=== PATIENT | female | born 1970 | race Caucasian/White ===

== ENCOUNTER → 2018-05-14 | Day surgery (SDC) | payer OTHER ==
[2018-05-13 16:27] LABS: BASOPHILS % 0.3 % (0.0-1.0); EOSINOPHILS # (AUTO) 0.1 (0.0-0.4); EOSINOPHILS % 0.7 % (0.0-6.0); HEMATOCRIT 42.7 % (34.2-44.1); HEMOGLOBIN 14.5 g/dL (12.0-16.0); LYMPHOCYTES # (AUTO) 3.4 (1.0-3.2); LYMPHOCYTES % 33.2 % (18.0-39.1); MEAN CORPUSCULAR HEMOGLOBIN 31.4 pg (28-32); MEAN CORPUSCULAR VOLUME 92.4 fL (81-99); MONOCYTES # (AUTO) 0.4 (0.2-0.8); MONOCYTES % 4.3 % (4.4-11.3); NEUTROPHILS # (AUTO) 6.2 (2.1-6.9); NEUTROPHILS % 61.2 % (38.7-80.0); PLATELET COUNT 180 x10e3/uL (140-360); RED BLOOD COUNT 4.62 x10e6/uL (3.6-5.1); RED CELL DISTRIBUTION WIDTH 12.9 % (11.7-14.4)
[2018-05-13 17:08] LABS: INR 0.89; PROTHROMBIN TIME 12.9 seconds (11.9-14.5)
[2018-05-13 17:20] LABS: ALANINE AMINOTRANSFERASE 16 IU/L (0-55); ALBUMIN 4.2 g/dL (3.5-5.0); ALBUMIN/GLOBULIN RATIO 1.3 (0.8-2.0); ALKALINE PHOSPHATASE 112 IU/L (40-150); ANION GAP 16.4 mmol/L (8-16); BLOOD UREA NITROGEN 19 mg/dL (7-26); BUN/CREATININE RATIO 20 (6-25); CALCIUM 9.8 mg/dL (8.4-10.2); CARBON DIOXIDE 27 mmol/L (22-29); CHLORIDE 103 mmol/L (98-107); CHOL/HDL RATIO 2.7 (3.0-3.6); CHOLESTEROL 133 MD/DL (0-199); CREATININE, SERUM 0.93 mg/dL (0.57-1.11); EST GLOMERULAR FILTRATION RATE > 60 ML/MIN (60-); GLUCOSE 87 mg/dL (74-118); HDL CHOLESTEROL 49 MG/DL (40-60); LDL CHOLESTEROL 68 MG/DL (60-130); POTASSIUM 3.4 mmol/L (3.5-5.1); SODIUM 143 mmol/L (136-145); TRIGLYCERIDES 80 MG/DL (0-149)
[~2018-05-14] VITALS: Ht 154.9 cm; Wt 82.1 kg
[~2018-05-14] MED LIST: ALPRAZOLAM1 MG PO; ASPIR 8181 MG PO; ATORVASTATIN CA80 MG PO; DIOVAN160 MG PO; DIPHENHYDRAMINE HCL INJ 50 MG/ML VIAL ONE; FENTANYL CITRATE/PF 100MCG/2 ML INJ ONE; FUROSEMIDE40 MG PO; HEPARIN SOD/SOD CHLORIDE 2,000 ML ONE; IOPAMIDOL 370 MG/ML 200 ML INFUS..BTL INJ ONE; LIDOCAINE HCL 2% LOCAL 20 ML VIAL ONE; LOPID600 MG PO; LOSARTAN POTASS25 MG PO; METOPROLOL TART25 MG PO; METOPROLOL TART50 MG PO; MIDAZOLAM HCL 2 MG/2 ML VIAL ONE; PLAVIX75 MG PO; RANEXA500 MG PO; SODIUM CHLORIDE 0.9% 1000ML 0 ML ONE; SODIUM CHLORIDE 0.9% 1000ML 1,000 ML ONE; SPIRONOLACTONE25 MG PO
[2018-05-14 14:55] VITALS: BP 92/61
[2018-05-14 15:06] VITALS: BP 76/66
--- NOTE | 2018-05-14 15:14 | Operative Report ---
DATE OF PROCEDURE: May 14, 2018 INDICATIONS: Coronary artery disease and abnormal stress test. PROCEDURES PERFORMED 1. Left heart catheterization. 2. Selective coronary angiography. 3. Left ventriculography. 4. Deployment of right groin Angio-Seal. COMPLICATIONS: None. RECOMMENDATIONS: Medical therapy. Access obtained in the right femoral artery. A 6-Lithuanian sheath was placed. Diagnostic coronary angiogram revealed the left main widely patent. Ostial left anterior descending artery 50% stenosis. Stent in the proximal left anterior descending artery was widely patent. Remaining vessel had mild disease. Circumflex and right coronary artery had mild disease of less than 10% luminal stenosis. No critical stenosis or occlusions were noted. LV ejection fraction 30%. 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 LV end-diastolic pressure of 18. No gradient across the aortic valve on pullback. Right groin repaired using Angio-Seal. Patient discharged home same day. Job#: [id number] [place]
[2018-05-14 15:33] VITALS: BP 93/65
[2018-05-14 16:00] VITALS: BP 96/68
== END | disposition home or self-care (01) ==
LOC: CATH LAB 11:46
PROVIDERS: ATTEND Internal Medicine Interventional Cardiology
DX: I25.10 Atherosclerotic heart disease of native coronary artery without angina pectoris (principal); R94.39 Abnormal result of other cardiovascular function study; Z01.812 Encounter for preprocedural laboratory examination; Z79.82 Long term (current) use of aspirin; Z79.02 Long term (current) use of antithrombotics/antiplatelets
CPT/HCPCS: 36415; 80053; 80061; 81025; 85025; 85610; 93458; C1769; J1200; J2001; J2250; J7030; Q9967

== ENCOUNTER → 2020-02-29 | Day surgery (SDC) | payer OTHER ==
[2020-02-24 11:23] LABS: BASOPHILS % 0.3 % (0.0-1.0); EOSINOPHILS # (AUTO) 0.1 (0.0-0.4); EOSINOPHILS % 1.1 % (0.0-6.0); HEMATOCRIT 44.7 % (34.2-44.1); HEMOGLOBIN 14.7 g/dL (12.0-16.0); LYMPHOCYTES % 27.6 % (18.0-39.1); MEAN CORPUSCULAR HEMOGLOBIN 30.9 pg (28-32); MEAN CORPUSCULAR HGB CONC 32.9 g/dL (31-35); MEAN CORPUSCULAR VOLUME 93.9 fL (81-99); MONOCYTES # (AUTO) 0.3 (0.2-0.8); MONOCYTES % 3.7 % (4.4-11.3); NEUTROPHILS # (AUTO) 4.9 (2.1-6.9); PLATELET COUNT 170 x10e3/uL (140-360); RED BLOOD COUNT 4.76 x10e6/uL (3.6-5.1); RED CELL DISTRIBUTION WIDTH 13.1 % (11.7-14.4)
[2020-02-24 11:41] LABS: INR 0.85; PROTHROMBIN TIME 12.1 seconds (11.9-14.5)
[2020-02-24 11:50] LABS: ANION GAP 10.9 mmol/L (8-16); BLOOD UREA NITROGEN 13 mg/dL (7-26); BUN/CREATININE RATIO 15 (6-25); CALCIUM 9.2 mg/dL (8.4-10.2); CARBON DIOXIDE 29 mmol/L (22-29); CHLORIDE 106 mmol/L (98-107); CREATININE, SERUM 0.87 mg/dL (0.57-1.11); EST GLOMERULAR FILTRATION RATE > 60 ML/MIN (60-); GLUCOSE 107 mg/dL (74-118); POTASSIUM 3.9 mmol/L (3.5-5.1); SODIUM 142 mmol/L (136-145)
--- NOTE | 2020-02-24 19:00 | NUR ---
1900 Pt will need stat EKG on arrival and please see if BS needs to be check if doesn't report home check (states has hypoglycemic events) ds/rn
--- NOTE | 2020-02-24 19:00 | NUR ---
1900pm INTERVIEW OVER PHONE COMPLETED,pt aware Npo and self isolate for Covid.Will [id number] 28 February ds/rn
[~2020-02-29] VITALS: Ht 149.9 cm; Wt 86.2 kg
[2020-02-29] VITALS (8 sets, daily range): BP systolic 70–118; BP diastolic 37–88
[~2020-02-29] MED LIST changes: +BACITRACIN 50,000 UNIT VIAL ONE; +CEFAZOLIN SOD 2 GM/D5W 50ML 50 ML IV ONE; +GENTAMICIN SULFATE 40 MG/ML 2 ML VIAL ONE; -HEPARIN SOD/SOD CHLORIDE 2,000 ML ONE; -IOPAMIDOL 370 MG/ML 200 ML INFUS..BTL INJ ONE; +LIDOCAINE 1% W/EPINEPHRINE 20 ML VIAL ONE; -SODIUM CHLORIDE 0.9% 1000ML 0 ML ONE; -SODIUM CHLORIDE 0.9% 1000ML 1,000 ML ONE; +SODIUM CHLORIDE 0.9% 1000ML 2,000 ML ONE; +VANCOMYCIN 1GM/NS 250 ML 250 ML ONE
--- NOTE | 2020-02-29 12:17 | NUR ---
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
--- NOTE | 2020-02-29 12:45 | NUR ---
1245p check in completed, stat serum in progress and stat ekg completed handoff to Ajith Gandara ds/rn
--- NOTE | 2020-02-29 15:30 | NUR ---
1530P Received pt to room #9,bedside report received from MARY Toussaint. Alert oriented and appropriate, PERRLA, respirations even and unlabored to room air. Pulses x4 extremities equal and strong. Pedal pulses PT/DP X4 and marked. Cap fill brisk < 3 sec. left chest dressing for SICD dry and intact with pressure dressing ok to dc at 1800pm. Skin warm and dry integrity appears D/I. IV 20g to rt ac presents healthy w/o s/s of infiltration or complaint. Abdomen soft and supple. pt offered toileting, denies need to urinate or defecate. No personal affects with patient. Family at home will PU at 1805pm. Pt verbalizes understanding of POC. f/o 2wks no bath or dressing change for 2wks.Aware of importance to call MD for events.Monitor explained by technologist from [employer]. Currently w/o complaint of pain or need. ds/rn
--- NOTE | 2020-02-29 16:45 | NUR ---
3194 pt with c/o itch to left upper arm states why bp cuff to right arm now. States arm burning Noted small less pea size red spot, Encourage pt not to scratch cleaned and no sting barrier applied, reported to Md and charge staff, patient wants no further treatment. syl/rn
--- NOTE | 2020-02-29 17:00 | NUR ---
1700 Dr Goodwin check pt and discussed dc planning with pt examined and determined no further tx for any skin issues. Aware of importance of POC and dc instructions. awaits in car ds/rn
--- NOTE | 2020-02-29 18:00 | NUR ---
1800pm Pt meets DC criteria. left mid chest dressing and left pacer dressing site assessed for s/s of complication and presence of hematoma. Skin warm, dry, no discolor, and pulses present. IV removed from rt AC. Distal tip appears intact. VS WNL. Pt denies pain, sob, or need at this time. Family at bedside. Review of discharge paperwork and follow up instructions. verbalized understanding. Pt to wheelchair and transported to front of hospital. Transferred to private vehicle under own strength w/o incident with DC paperwork in hand. - syl/rn Addendum: 02/29/20 at 2136 by Aracely Mason RN 1800pm HEADER ADDED: DC CCL NURSING NOTE stable to dc home aware of home instructions has prescription and back to baseline orientation.
--- NOTE | 2020-02-29 21:49 | Operative Report ---
DATE OF PROCEDURE: 02/29/2020 SURGEON: Timothy Francois MD PREPROCEDURE DIAGNOSES: 1. Subcutaneous defibrillator at [place]. 2. Chronic pain and discomforted, she pulled the ICD lead. 3. History of ventricular fibrillation cardiac arrest. POSTPROCEDURE DIAGNOSES: 1. Subcutaneous defibrillator at [place]. 2. Chronic pain and discomforted, she pulled the ICD lead. 3. History of ventricular fibrillation cardiac arrest. ESTIMATED BLOOD LOSS: 10 mL. COMPLICATIONS: None. PROCEDURES PERFORMED: 1. Subcutaneous cardiac defibrillator generator replacement. 2. Subcutaneous defibrillator lead revision. 3. Moderate sedation. Moderate conscious sedation was provided under my direct supervision by sedation trained nurse. Sedation approximate time 25 minutes. Versed and fentanyl. There were no complications. See sedation form for details. DESCRIPTION OF PROCEDURE: After informed consent was obtained, the patient was brought to the electrophysiology laboratory in a fasting, nonsedated state. Area over her chest was prepped and draped in usual sterile fashion. Moderate sedation and prophylactic antibiotics were given. 1% lidocaine was used as local anesthetic and a 4 cm skin incision was made in the 6th intercostal space left anterior axillary line. Electrocautery was used to dissect until reaching the device. This device was freed out of the pocket. The pocket was irrigated with antibiotic solution using the pulse mine utility operator. Hemostasis was meticulous. The lead disconnected from the old device connected to the new device and the new device placed in the pocket. We used antibiotic envelope and also vancomycin powder. The incision was closed using absorbable sutures and Dermabond. We then proceeded with revising the subcutaneous defibrillator lead at the tip at the area of the sternum. In tip of the lead was loose in the subcutaneous tissue, so we made a 2 cm skin incision and then dissected to the fascia. The lead was secured to fascia using Ethibond and then the incision was closed using absorbable sutures and Dermabond. The patient tolerated the procedure well. Procedure was incomplete. Of note, initial plan was to perform DFT during the procedure, however, prior to the procedure had a conversation with the patient and she stated she will not like to be tested regardless of any indications. She understands that this is important that she was adamant that she did not want to be shocked or tested for DFTs, so DFT was not performed, the patient has not received any shocks, so I think this is reasonable from the clinical standpoint. SUMMARY OF HARDWARE IMPLANTED: The new defibrillator is a [employer], serial #[id number]. IMPRESSION: 1. Successful subcutaneous defibrillator generator replacement. 2. Successful AICD lead revision. PLAN: 1. Routine postop monitoring on telemetry. 2. Continue same medicines. 3. Follow up in two weeks. MD NATHAN Barth/MODL /[id number]
== END | disposition home or self-care (01) ==
LOC: CATH LAB 10:25
PROVIDERS: ATTEND Internal Medicine
DX: T82.847A Pain due to cardiac prosthetic devices, implants and grafts, initial encounter (principal); T82.110A Breakdown (mechanical) of cardiac electrode, initial encounter; Z86.74 Personal history of sudden cardiac arrest; I25.10 Atherosclerotic heart disease of native coronary artery without angina pectoris; I49.01 Ventricular fibrillation; I50.22 Chronic systolic (congestive) heart failure; Y83.8 Other surgical procedures as the cause of abnormal reaction of the patient, or of later complication, without mention of misadventure at the time of the procedure; Z01.812 Encounter for preprocedural laboratory examination; Z11.59 Encounter for screening for other viral diseases; Z79.02 Long term (current) use of antithrombotics/antiplatelets; Z79.82 Long term (current) use of aspirin; Z95.5 Presence of coronary angioplasty implant and graft
CPT/HCPCS: 33262; 33273; 36415 ×2; 80048; 84702; 85025; 85610; 93005; C1722; C1763; J0690; J1200; J1580; J2001; J2250; J3370; J7030; U0002; 33215; 99152; 99153; J3010

== ENCOUNTER → 2020-05-23 | Day surgery (SDC) | payer OTHER ==
[2020-05-21 15:21] LABS: BASOPHILS # (AUTO) 0.1 (0.0-0.1); BASOPHILS % 0.6 % (0.0-1.0); EOSINOPHILS # (AUTO) 0.1 (0.0-0.4); EOSINOPHILS % 1.4 % (0.0-6.0); HEMOGLOBIN 13.8 g/dL (12.0-16.0); LYMPHOCYTES # (AUTO) 2.8 (1.0-3.2); LYMPHOCYTES % 36.1 % (18.0-39.1); MEAN CORPUSCULAR HEMOGLOBIN 31.1 pg (28-32); MEAN CORPUSCULAR HGB CONC 32.9 g/dL (31-35); MEAN CORPUSCULAR VOLUME 94.6 fL (81-99); MONOCYTES # (AUTO) 0.4 (0.2-0.8); NEUTROPHILS # (AUTO) 4.4 (2.1-6.9); NEUTROPHILS % 56.8 % (38.7-80.0); PLATELET COUNT 217 x10e3/uL (140-360); RED BLOOD COUNT 4.44 x10e6/uL (3.6-5.1); RED CELL DISTRIBUTION WIDTH 13.3 % (11.7-14.4)
[2020-05-21 15:31] LABS: INR 0.87; PROTHROMBIN TIME 12.3 seconds (11.9-14.5)
[2020-05-21 15:36] LABS: ANION GAP 14.1 mmol/L (8-16); BLOOD UREA NITROGEN 15 mg/dL (7-26); BUN/CREATININE RATIO 16 (6-25); CARBON DIOXIDE 28 mmol/L (22-29); CHLORIDE 107 mmol/L (98-107); CREATININE, SERUM 0.94 mg/dL (0.57-1.11); EST GLOMERULAR FILTRATION RATE > 60 ML/MIN (60-); GLUCOSE 98 mg/dL (74-118); POTASSIUM 4.1 mmol/L (3.5-5.1); SODIUM 145 mmol/L (136-145)
--- NOTE | 2020-05-22 12:30 | NUR ---
1230 Pt contacted by phone for interview of scheduled procedure. Review of medical history and current medications. Procedural consent on day of arrival to be completed, pre-op orders, and twice bathing education completed. All questions clarified and or answered where appropriate. pt verbalizes understanding to include day of procedure expectations and practice social distancing. Pt will contact Physician office to clarify medications to be held prior to procedural date.States has new allergy to Lorazepam which causes delusions and Microfoam tape that cases irritation to chest wall only.Aware will be admitted on day of procedure. Also noted has procedure scheduled and will be self insolating for Covid precautions so he will not be in attendance with patient.He is available on cell and will need to be informed of dc date. cell [phone] Alber Leger. syl/jose
[2020-05-23] VITALS (7 sets, daily range): BP systolic 77–140; BP diastolic 47–77
[~2020-05-23] VITALS: Ht 154.9 cm; Wt 86.6 kg
[~2020-05-23] MED LIST changes: -BACITRACIN 50,000 UNIT VIAL ONE; +CEFAZOLIN SOD 1 GM VIAL ONE; -CEFAZOLIN SOD 2 GM/D5W 50ML 50 ML IV ONE; -GENTAMICIN SULFATE 40 MG/ML 2 ML VIAL ONE; +SODIUM CHLORIDE 0.9% 500ML 500 ML ONE; +SODIUM CHLORIDE 0.9% 50ML 100 ML ONE; +VANCOMYCIN 1GM/NS 250 ML 0 ML ONE; -VANCOMYCIN 1GM/NS 250 ML 250 ML ONE; +[UNRECOGNIZED DRUG - OTHER] PO
--- NOTE | 2020-05-23 15:42 | NUR ---
1542pm bedside report received from JOSE Canseco. Identifierx2.Alert oriented and appropriate, PERRLA, respirations even and unlabored to room air. Pulses x4 extremities equal and strong. Pedal pulses PT/DP X4 and marked. Cap fill brisk < 3 sec. Chest dressing to mid chest and left lateral dry and intact. Life vest in place. Culture of exudate from site of lead pocket ordered by and collected and delivered by to lab by Ajith HERNANDEZ. Skin warm and dry integrity appears D/I. IV 20g to left hand, presents healthy w/o s/s of infiltration or complaint. Abdomen soft and supple. Pt offered toileting, denies need to urinate or defecate. personal affects with patient. Family to arrive on discharge. With dc planning to be reviewed with on arrival. Pt. calling outside nurse institutional nutrition consultant to refill anti-anxiety meds. Pt has antibiotic and pain prescriptions in hand ordered by procedural big data admin. Pt tolerating po intake In no current discomfort with Lie Vest operable.Pt had teaching of system from client service representative last Pm on home visit. syl/jose
--- NOTE | 2020-05-23 15:42 | NUR ---
1542pm COMIC BOOK DESIGNER RECOVERY DISCHARGE NURSING NOTE Pt meets DC criteria.Site assessed for s/s of complication and Presence of hematoma. Skin warm, dry, no discolor, and pulses present. IV removed from Distal tip appears intact. VS WNL. Pt denies pain, sob, or need at this time. Family at [facility], [place] . Review of discharge paperwork and follow up instructions. verbalized understanding. Pt to wheelchair and transported to front of hospital. Transferred to private vehicle under own strength w/o incident with DC paperwork in hand. Pt has old personal console for defib. in hand and [employer] packages with replacement batteries with instructions Aware of importance of f/o care and calling Md office for any others questions. syl/aditya Addendum: 05/23/20 at 1853 by Aracely Mason RN Time correction dc time 1800pm
--- NOTE | 2020-05-24 04:37 | Operative Report ---
DATE OF PROCEDURE: 05/23/2020 SURGEON: Timothy Francois MD PREPROCEDURE DIAGNOSES: 1. Subcutaneous defibrillator pocket infection. 2. History of cardiac arrest. POSTPROCEDURE DIAGNOSES: 1. Subcutaneous defibrillator pocket infection. 2. History of cardiac arrest. ESTIMATED BLOOD LOSS: 20 mL. COMPLICATIONS: None. PROCEDURES PERFORMED: 1. Extraction of subcutaneous defibrillator. 2. Moderate sedation. 3. Moderate conscious sedation was provided under my direct supervision by sedation trained nurse. Sedation approximate time 45 minutes. Versed was given. See report for details. DESCRIPTION OF PROCEDURE: After informed consent was obtained, the patient was brought to the electrophysiology laboratory in a fasting, nonsedated state. Area over her chest was prepped and draped in the usual sterile fashion. Moderate sedation and prophylactic antibiotics were given. 1% lidocaine was used as local anesthetic and a 3 cm skin incision was made over the device on the lateral side of the chest. This device was freed out of the pocket. Then another incision int the mid Xphoid in the upper incision on the tip of the lead until reaching the fascia and the sutures were detached from the fascia. Then, the whole device was removed from the pocket. The pockets were irrigated with antibiotic solution using the pulse auto dismantler. Prior to that, we took a swab for cultures and then the incisions were closed using absorbable sutures and Dermabond. The patient tolerated the procedure well. The procedure was incomplete. Of note, there was some small amount of purulent material in the lateral pocket. IMPRESSION: Successful removal of subcutaneous cardiac defibrillator. PLAN: Routine postop monitoring on telemetry. We will go ahead and place a LifeVest. We will follow up in two weeks. Timothy Francois MD JRC/MODL /[id number]
== END | disposition home or self-care (01) ==
LOC: CATH LAB 11:29
PROVIDERS: ATTEND Internal Medicine
DX: T82.7XXA Infection and inflammatory reaction due to other cardiac and vascular devices, implants and grafts, initial encounter (principal); I25.10 Atherosclerotic heart disease of native coronary artery without angina pectoris; I50.22 Chronic systolic (congestive) heart failure; Y83.8 Other surgical procedures as the cause of abnormal reaction of the patient, or of later complication, without mention of misadventure at the time of the procedure; Z88.6 Allergy status to analgesic agent; Z45.02 Encounter for adjustment and management of automatic implantable cardiac defibrillator; Z01.812 Encounter for preprocedural laboratory examination; Z11.59 Encounter for screening for other viral diseases; Z79.82 Long term (current) use of aspirin; Z79.02 Long term (current) use of antithrombotics/antiplatelets; Z68.37 Body mass index [BMI] 37.0-37.9, adult; Z95.5 Presence of coronary angioplasty implant and graft; Z86.74 Personal history of sudden cardiac arrest
CPT/HCPCS: 33241; 33272; 36415; 80048; 85025; 85610; 87071; 87205; J0690; J1200; J2001; J2250; J7030; J7040; U0002; 99152; 99153; J3010; J3370